=== PATIENT | female | born 1925 | race Caucasian/White ===

== ENCOUNTER 2016-08-16 10:13 | Outpatient (CLI) | payer OTHER ==
--- NOTE | 2016-08-16 13:59 | DIAGNOSTIC IMAGING REPORT ---
PROCEDURE: XR BARIUM SWALLOW INDICATION: NAUSEA, ESOPHAGEAL DIVERTICULUM TECHNIQUE: Double contrast study. Fluoroscopy time, 3.0 minutes; 1633.67 mGy. 53 fluoroscopic images (including cine fluoroscopy of the esophagus). COMPARISON: Comparison is made to barium swallow on fifth 05/23/2013 FINDINGS: There is a large 3.5 cm diverticulum of the distal esophagus (most likely pole of the diverticulum) with a wide neck (1.5 cm). Small sliding hiatal hernia with moderate gastroesophageal reflux (including reflux from the diverticulum). Esophagus is otherwise normal. No constricting or polypoid lesions. IMPRESSION: 1. No change. 2. Large 3.5 cm diverticulum of the distal esophagus. 3. Moderate gastroesophageal reflux (including reflux from esophageal diverticulum). 4. Findings discussed with the patient.
== END 2016-08-16 23:00 ==
LOC: XR SRH 10:13
DX: K22.5 Diverticulum of esophagus, acquired (principal); K21.9 Gastro-esophageal reflux disease without esophagitis